=== PATIENT | female | born 1965 | race Caucasian/White ===

== ENCOUNTER 2016-06-08 13:55 | Outpatient (CLI) | payer OTHER ==
--- NOTE | 2016-06-08 17:09 | RAD ---
FOUR VIEW SCOLIOSIS SERIES: Indication: Disability evaluation with back pain. Comparison: None. FINDINGS: There are eleven rib bearing vertebrae. There is small suspected rib at T12. There are five lumbar type vertebrae. No congenital vertebral anomaly is evident. There is mild multilevel spondylosis of the thoracolumbar spine. No acute fracture or subluxation is evident. There is minimal curvatur e of the thoracic spine that is not clinically significant. IMPRESSION: 1. No acute osseous abnormality. 2. No clinically significant scoliotic curve. 3. Mild spondylosis of the lower lumbar spine. POS: [facility]
== END 2016-06-08 13:56 | disposition home or self-care (01) ==
LOC: NAV RAD 13:55
PROVIDERS: ATTEND Family Medicine
DX: Z02.71 Encounter for disability determination (principal); M47.816 Spondylosis without myelopathy or radiculopathy, lumbar region
CPT/HCPCS: 72081

== ENCOUNTER 2019-05-26 07:17 | Emergency (ER) | payer OTHER | END 2019-05-26 08:04 | disposition home or self-care (01) | LOC: NAV ERS 07:17 | DX: J30.9 Allergic rhinitis, unspecified (principal); M06.9 Rheumatoid arthritis, unspecified; F31.9 Bipolar disorder, unspecified; F41.9 Anxiety disorder, unspecified; F32.9 Major depressive disorder, single episode, unspecified; F60.9 Personality disorder, unspecified; Z87.891 Personal history of nicotine dependence | CPT/HCPCS: 99283 ==

== ENCOUNTER 2020-03-15 13:56 | Emergency (ER) | payer SELFPAY | END 2020-03-15 14:40 | disposition home or self-care (01) | LOC: NAV ERS 13:56 | DX: S29.012A Strain of muscle and tendon of back wall of thorax, initial encounter (principal); F31.9 Bipolar disorder, unspecified; Z87.891 Personal history of nicotine dependence; Z79.899 Other long term (current) drug therapy; X50.9XXA Other and unspecified overexertion or strenuous movements or postures, initial encounter | CPT/HCPCS: 99283 ==